=== PATIENT | male | born 1945 | race Caucasian/White ===

== ENCOUNTER 2020-12-02 06:47 | Day surgery (SDC) | payer OTHER, BC ==
[~2020-12-02] VITALS: Ht 172.7 cm; Wt 102.5 kg
[~2020-12-02 06:47] MED LIST: ALBUTEROL2.5 MG/31 INH; BREO ELLIPTA 11 EACH INH; COLACE100 MG PO; ELDERBERRY PO; ELIQUIS5 MG PO; FINASTERIDE5 MG PO; FLOMAX0.4 MG PO; GAS RELIEF80 MG PO; GAS-X180 MG PO; IMDUR 30 MG TAB30 M1 PO; LATANOPROST 0.2.5 ML EA. EYE; LIPITOR80 MG PO; MAGNESIUM400 M1 PO; METFORMIN HCL500 M3 PO; MIRALAX119 GM PO; MUCINEX600 MG PO; NEURONTIN 400M400 M2 PO; NITROGLYCERIN0.4 MG SUBLING; OXYBUTYNIN CHLO10 MG PO; PLAVIX 75 MG TA75 MG PO; PREDNISONE 5 MG5 MG PO; PROTONIX40 M4 PO; SINGULAIR 10 MG10 M1 PO; TOPROL XL25 MG PO; VITAMIN B125000 MCG PO; VITAMIN C500 M1 PO; VITAMIN D325 MC2 PO; ZETIA10 MG PO; ZINC50 M3 PO
[2020-12-02 08:15] VITALS: BP 126/73
--- NOTE | 2020-12-06 06:12 | O ---
[facility] [place] [address] OPERATIVE REPORT Name: SYMONE TANNER Room #: DEP [facility]..#: [id number] Admission: 12/02/20 Attend Phys: Emmanuel Case MD Discharge: 12/02/20 Date of : 41 Report #: [id number] THIS REPORT FOR: cc: Nell Andrew MD,Nell Case,Emmanuel Johnson MD ~ cc: Nell Andrew MD DATE OF SERVICE: 12/02/2020 PREOPERATIVE DIAGNOSIS: Basal cell carcinoma of right lower lid and cheek. POSTOPERATIVE DIAGNOSIS: Basal cell carcinoma of right lower lid and cheek. PROCEDURE: Excision of basal cell carcinoma, right lower lid and cheek with frozen section control of margins and myocutaneous flap repair of defect. SURGEON: Emmanuel Case MD PLASTIC EYE TECHNICIAN: None. ANESTHESIA: MAC. COMPLICATIONS: None. INDICATIONS FOR SURGERY: This pleasant 75-year-old gentleman has a biopsy proven basal cell carcinoma in his lateral right lower lid that extends onto his cheek. He presents today for excision of this lesion with frozen sections and repair of that defect. Informed consent was obtained to include but not limited to the potential risk for loss of vision, bleeding, infection, failure to improve the problem, the potential need for further surgery or treatment. DESCRIPTION OF PROCEDURE: The patient was taken to the operating room where 2% Xylocaine with epinephrine mixed with equal parts 0.75% Marcaine with Wydase was administered transcutaneously and transconjunctivally to the right lower lid, cheek, infratemporal fossa and the lateral canthus. The patient was subsequently prepped and draped in the usual sterile fashion. A fine tip skin marking pen was utilized to outline the lesion including 1-2 mm of normal appearing tissue. The incision was then made perpendicularly through the skin, excising this ellipse of tissue. Hemostasis was achieved in the field with diligent pinpoint monopolar cautery. The specimen was then oriented on a drawing for the waiting pathologist. The pathologist snap froze that tissue and found that the margins were clear. The area was then undermined widely to allow myocutaneous flap to be developed from lateral to be rotated medially. Hemostasis was then re-achieved. The flap [address] [address] OPERATIVE REPORT Name: SYMONE TANNER Room #: DEP [facility].R.#: [id number] Admission: 12/02/20 Attend Phys: Emmanuel Case MD Discharge: 12/02/20 Date of : 41 Report #: [id number] was then advanced and secured with multiple interrupted 6-0 plain gut sutures. The wounds were then cleaned and dressed with erythromycin ophthalmic ointment. The patient was subsequently transported to the recovery area having tolerated the procedures well with no anesthetic or operative complications being noted. <ELECTRONICALLY SIGNED> By: Emmanuel Case MD 12/06/20 0612 [id number] Emmanuel Case MD /mert
--- NOTE | 2020-12-06 12:06 | PATH ---
[facility] [address] [place] [address] PATHOLOGY RPT PROCEDURE Name: SYMONE TANNER Room #: DEP [facility]..#: [id number] Admission: 12/02/20 Date of : 41 Discharge: 12/02/20 Report #: [id number] Path Case #: [id number] [facility] Accession Number: [id number] . 01 Material submitted: . eye - RIGHT LOWER LID BASAL CELL CARINOMA FS. Modifiers: right lobe, lower . 01 Clinical history: . EXCISION BASAL CELL CARINOMA RIGHT LOWER LID BASAL CELL CARCINOMA . 02 Frozen section diagnosis: . FROZEN SECTION DIAGNOSIS: (Mercedes Yun M.D.): . FSA1. Skin right lower lid, biopsy: - Margins negative for carcinoma. . The results were reported to Dr. Case at 0925 on 12/02/2020. . Frozen section performed at [facility], [address] [place], [place] [address] , [place] [address]. . . FROZEN SECTION GROSS DESCRIPTION: The specimen is received fresh in the OR labeled with the patient's name and "right lower lid basal cell carcinoma" is an oriented ellipse of lima-white skin with a central pale lesion measuring 0.3 x 0.2 cm. The ellipse measures 1.3 x 0.4 x 0.4 cm. The lateral margin is designated as the 12:00 position and the superior margin is designated as the 3:00 position, medial margin 6:00 position, and inferior margin 9:00 position. The 12 to 6:00 margin is inked blue, the 6 to 9:00 margin is inked yellow and the 9 to 12:00 margin is inked green. The deep resection margin is inked black. The specimen is sectioned to separate 12 and 6:00 halves, and then serially sectioned and submitted entirely for frozen section consultation with the remnant being placed in cassette FSA1. (SCA/db; 12/02/2020) ALB/LBQ . 03 Diagnosis: Skin (right lower lid basal cell carcinoma): - Actinic damaged dermal scar and mild chronic inflammation are identified. There is no evidence of basal cell carcinoma. (JOSE CRUZ:sahil; 12/03/2020) MBR 12/03/2020 1147 Local . 03 Electronically signed: . [address] [address] PATHOLOGY RPT PROCEDURE Name: SYMONE TANNER Room #: DEP [facility] Matt#: [id number] Admission: 12/02/20 Date of : 41 Discharge: 12/02/20 Report #: [id number] Path Case #: [id number] Edy Jose MD, Pathologist NPI- [id number] . 01 Gross description: . SEE FROZEN SECTION GROSS DESCRIPTION. C/SYC 12/03/2020 1133 Local . 03 Pathologist provided ICD-10: C44.1121 . 03 CPT . 863929, [id number] Specimen Comment: A courtesy copy of this report has been sent to [phone] Specimen Comment: Report sent to Specimen Comment: A duplicate report has been generated due to demographic updates. Performed at: 01 [facility] [address] [id number] MD Robby Díaz MD Phone: [phone] Performed at: [address] [facility] [id number] MD Nicolette Salinas MD Phone: [phone] Performed at: 03 [facility] [address] [id number] MD Edy Jose MD Phone: [phone]
== END 2020-12-02 10:30 | disposition home or self-care (01) ==
LOC: TBA 06:47 → OR 06:47 → TBA 06:48 → OR 10:30
PROVIDERS: ATTEND Ophthalmology
DX: L90.5 Scar conditions and fibrosis of skin (principal); H01.9 Unspecified inflammation of eyelid; E11.9 Type 2 diabetes mellitus without complications; J43.9 Emphysema, unspecified; N40.0 Benign prostatic hyperplasia without lower urinary tract symptoms; K21.9 Gastro-esophageal reflux disease without esophagitis; Z98.890 Other specified postprocedural states; Z79.899 Other long term (current) drug therapy; Z79.01 Long term (current) use of anticoagulants; Z86.73 Personal history of transient ischemic attack (TIA), and cerebral infarction without residual deficits; Z95.0 Presence of cardiac pacemaker; Z88.8 Allergy status to other drugs, medicaments and biological substances
CPT/HCPCS: 50010; 50101; 50386; 50398; 51636; 56528; 56531; 62110; 62850; 70005